=== PATIENT | male | born 1970 | race Hispanic/Latino ===

== ENCOUNTER 2017-09-26 01:41 | Emergency (ER) | payer SELFPAY ==
--- NOTE | 2017-09-26 02:19 | ED.PDOC ---
History of Present Illness - General Chief Complaint: General Stated Complaint: toothache Time Seen by Provider: 09/26/17 02:16 Source: patient Exam Limitations: no limitations - History of Present Illness Initial Comments: Nikolas Araujo 46 y/o male stated that he had been having toothache for the last 3 days got worse tonight unable to go sleep due to throbbing pain. Timing/Duration: gradual EENT Location: dental Prearrival Treatment: no prearrival treatment Presenting Symptoms: achy tooth Improving Factors: nothing Worsening Factors: nothing Associated Symptoms: denies symptoms Allergies/Adverse Reactions: Allergies NO KNOWN ALLERGY Allergy (Verified 09/26/17 01:55) Home Medications: Ambulatory Orders Clindamycin HCl 300 mg PO BID #30 cap 09/26/17 Review of Systems - Review of Systems Constitutional: States: no symptoms reported EENTM: States: see HPI Respiratory: States: no symptoms reported Cardiology: States: no symptoms reported Gastrointestinal/Abdominal: States: no symptoms reported All other Systems: Reviewed and Negative, No Change from Baseline Past Medical History (General) - Patient Medical History Hx Seizures: No Hx Stroke: No Hx Dementia: No Hx Asthma: No Hx of COPD: No Hx Cardiac Disorders: No Hx Congestive Heart Failure: No Hx Pacemaker: No Hx Hypertension: Yes Hx Thyroid Disease: No Hx Diabetes: No Hx Gastroesophageal Reflux: No Hx Renal Disease: No Hx Cancer: No Hx of HIV: No Hx Hepatitis C: No Hx MRSA: No Surgical History: other - Vaccination History Hx Tetanus, Diphtheria Vaccination: No Hx Influenza Vaccination: No Hx Pneumococcal Vaccination: No - Social History Hx Tobacco Use: Yes Hx Alcohol Use: Yes Hx Substance Use: No Hx Substance Use Treatment: No Hx Depression: No Family Medical History - Family History Mother Family History: Unknown Physical Exam - Physical Exam General Appearance: Alert, Anxious, No apparent distress Eye Exam: bilateral normal Ear Exam: bilateral ear: auricle normal, canal normal, TM normal Nasal Exam: normal inspection Throat Exam: pharynx normal, dental tenderness - left upper molar,multiple dental decay Neck: non-tender, supple Cardiovascular/Respiratory: regular rate, rhythm, normal breath sounds Abdominal Exam: non-tender, no organomegaly Neurologic: alert, oriented x 3 Skin Exam: normal color, warm/dry Progress - Progress Progress: 09/26/17 02:39 Last Vital Signs Temp 95.4 F L 09/26/17 01:56 Pulse 73 09/26/17 01:56 Resp 20 09/26/17 01:56 BP 163/94 09/26/17 01:56 Pulse Ox 98 09/26/17 01:56 Intraolral superior alveolar nerve block done with lidocaine 2% w/epi 2 cc tolerated well.Had dental pain relief. 09/26/17 02:41 - EKG/XRAY/CT CT Ordered: No Departure - Departure Clinical Impression: Chronic pulpitis, Dental caries extending into pulp Time of Disposition: 02:43 Disposition: Discharge to Home or Self Care Condition: Good Departure Forms: ED Discharge - Pt. Copy, Patient Portal Self Enrollment Instructions: DI for Tooth Decay Diet: other - SOFT DIET ONLY until seen by DENTIST Prescriptions: Clindamycin HCl 300 mg PO BID #30 cap Home Medications: Ambulatory Orders Clindamycin HCl 300 mg PO BID #30 cap 09/26/17 Additional Instructions: NEED TO CALL UP YOUR DENTIST IN [place] during office hours today for appointment ;other dental clinic in [place]-[phone] ;[id number] [facility] [id number]
[2017-09-26] MEDS ORDERED: CLINDAMYCIN HCL CAP 150 MG CAP PO ONE (02:23)
[2017-09-26] MEDS ORDERED: CLINDAMYCIN PHOSPHATE 150 MG/ML VIAL IM ONE (02:23)
[2017-09-26] MEDS ORDERED: LIDOCAINE 2% W/ EPINEPHRINE 20 ML VIAL INJ ONE ×2 (02:31→02:46)
[2017-09-26] MEDS ORDERED: HYDROCOD/APAP 10/325 (ER DISP) # 3 tablets PO ONE (02:45)
[2017-09-26 03:06] VITALS: BP 142/81; TEMP 96.2; O2SAT 92
== END 2017-09-26 03:09 | disposition home or self-care (01) ==
LOC: ER 01:41
DX: K02.9 Dental caries, unspecified (principal); K04.01 Reversible pulpitis; Z87.891 Personal history of nicotine dependence